=== PATIENT | female | born 1950 | race African-American/Black ===

== ENCOUNTER 2017-04-22 23:36 | Emergency (ER) | payer OTHER, MEDICAID ==
[2017-04-22 23:45] VITALS: BMI 46.3
[2017-04-22 23:55] VITALS: BP 137/92
--- NOTE | 2017-04-23 01:05 | DR.GENAD ---
HPI - PCP Primary Care Physician: JORDY - Complaint/Symptoms Chief Complaint Doctors Comments: Patient was referred to [facility] by her primary care physician. She was seen by him today. Results of x rays pending; complains of generalized back,hip and leg pain. Patient admits to being wheel chair bound due to her arthritis. Chief Complaint:: LEFT LOWER BACK PAIN; PT HAS HX OF RIGHT LEG/BACK PAIN Self Treatment fo Chief Complaint: XRAYS DONE AT DR. SOTO'S OFFICE; HASNT RECEIVED THE RESULTS; PT TAKES MOBIC AND TRAMADOL FOR PAIN - Source History Provided: Patient - Mode of Arrival Mode of Arrival: Ambulatory - Timing Onset of Chief Complaint: 04/15/17 PMH - PMH Past Medical History: Yes Past Medical History: Arthritis, GERD, Hypertension Past Surgical History: Yes Past Surgical History Comment: RT LEG SURGERY; FX X 3 WITH PINS AND RODS PLACED - Family History History of Family Medical Conditions: No - Social History Alcohol Use: None Do you use any recreational Drugs:: No Lives With: Family Lives Where: Home - infectious screening In the last 2 months have you had wt loss of >10#?: NO Have you had fever, night sweats or hemotysis?: No Have you traveled outside the country in the last 6 months?: No Isolation: Standard ROS - Review of Systems Eyes: No Symptoms Reported ENTM: No Symptoms Reported Respiratoy: No Symptoms Reported Cardiovascular: No Symptoms Reported Gastrointestinal/Abdominal: No Symptoms Reported Genitourinary: No Symptoms Reported Neurological: No Symptoms Reported Musculoskeletal: No Symptoms Reported Integumentary: No Symptoms Reported Hematologic/Lymphatic: No Symptoms Reported Endocrine: No Symptoms Reported Psychiatric: No Symptoms Reported All Other Systems: Reviewed and Negative PE - Vital Signs Vitals: Temperature 98.7 F Pulse Rate [Right Brachial] 89 Respiratory Rate 22 Blood Pressure [Right Arm] 137/92 O2 Sat by Pulse Oximetry 96 - General Limitations: No Limitations General Appearance: Alert, In No Apparent Distress - Head Head Exam: Normal Inspection, Atraumatic - Eyes Eye exam: Normal Appearance, PERRL, EOMI - ENT ENT Exam: Normal Exam External Ear Exam: Normal External Inspection TM/Canal Exam: Bilateral Normal Nose Exam: Normal Nose Exam Mouth Exam: Normal Inspection Throat Exam: Normal Inspection - Neck Neck Exam: Normal Inspection - Chest Chest Inspection: Normal Inspection - Respiratory Respiratory Exam: Normal Lung Sounds Bilat Respiratory Exam: Bilateral Clear to Auscultation - Cardiovascular Cardiovascular Exam: Regular Rate - Abdominal Exam Abdominal Exam: Normal Inspection Abdominal Tenderness: negative: RUQ, RLQ, LUQ, LLQ, Epigastrium, Suprapubic, Diffuse, Mild, Moderate, Severe, Other - Extremities Extremities Exam: Normal Inspection, Full ROM - Back Back Exam: Normal Inspection, Full ROM - Neurologic Neurological Exam: Alert, Oriented X3, CN II-XII Intact - Psychiatric Psychiatric Exam: Normal Affect, Normal Mood - Skin Skin Exam: Warm, Dry Course - Reevaluation 1st: Unchanged - Education/Counseling Educated On: Treatment, Diagnosis, Needs for Follow Up - Diagnosis Discharge Problem: Osteoarthritis Qualifiers: Osteoarthritis location: unspecified site Osteoarthritis type: primary Qualified Code(s): M19.91 - Primary osteoarthritis, unspecified site - Discharge Plan Condition: Stable - Follow ups/Referrals Follow ups/Referrals: ANTHONY SPENCE [Primary Care Provider] - 3 days - Instructions
== END 2017-04-23 01:34 | disposition home or self-care (01) ==
LOC: ER 23:36
DX: M19.91 Primary osteoarthritis, unspecified site (principal)
CPT/HCPCS: 99281; 99282